=== PATIENT | female | born 1985 | race Caucasian/White ===

== ENCOUNTER 2018-09-05 13:38 | Emergency (ER) | payer MEDICAID ==
--- NOTE | 2018-09-05 14:34 | ED PDOC ---
HPI: General Adult Time Seen by Provider: 09/05/18 14:32 Chief Complaint (Nursing): Dizziness/Lightheaded Chief Complaint (Provider): neck pain/swelling History Per: Patient (33 y/o female here with ongoing swelling by right lateral neck x 3 weeks. Notes chills. Seen by urgent care and advised f/u with pmd. Has appt 09/13 but noted worsening swelling and new lymph nodes by neck.) Past Medical History Reviewed: Historical Data, Nursing Documentation, Vital Signs Vital Signs: Last Vital Signs Temp 98.3 F 09/05/18 14:01 Pulse 81 09/05/18 14:01 Resp 16 09/05/18 14:01 BP 151/82 H 09/05/18 14:01 Pulse Ox 100 09/05/18 14:01 - Family History Family History: States: Unknown Family Hx - Home Medications Home Medications: Ambulatory Orders Medication Instructions Recorded Ciprofloxacin HCl [Cipro] 500 mg PO BID #10 tab 03/24/15 Ibuprofen 600 mg PO Q6H PRN #15 tab 03/24/15 Multivitamin [Merle-Plus G] 1 cap PO DAILY 03/24/15 Amoxicillin/Clavulanate [Augmentin 1 tab PO BID #20 tab 09/05/18 875 MG-125 MG] Ibuprofen [Motrin] 600 mg PO Q8 PRN #21 tab 09/05/18 - Allergies Allergies/Adverse Reactions: Allergies Allergy/AdvReac Type Severity Reaction Status Date / Time No Known Allergies Allergy Verified 09/05/18 14:00 Review of Systems ROS Statement: Except As Marked, All Systems Reviewed And Found Negative Physical Exam - Reviewed Nursing Documentation Reviewed: Yes Vital Signs Reviewed: Yes - Physical Exam Appears: Positive for: Well, Non-toxic, No Acute Distress Head Exam: Positive for: ATRAUMATIC, NORMAL INSPECTION, NORMOCEPHALIC Skin: Positive for: Normal Color, Warm, DRY Eye Exam: Positive for: EOMI, Normal appearance, PERRL ENT: Positive for: Normal ENT Inspection Neck: Positive for: Normal, Painless ROM Cardiovascular/Chest: Positive for: Regular Rate, Rhythm Respiratory: Positive for: CNT, Normal Breath Sounds Gastrointestinal/Abdominal: Positive for: Normal Exam, Soft Back: Positive for: Normal Inspection Extremity: Positive for: Normal ROM Neurologic/Psych: Positive for: Alert, Oriented - Laboratory Results Result Diagrams: 09/05/18 15:00 09/05/18 15:00 - ECG O2 Sat by Pulse Oximetry: 100 Medical Decision Making Medical Decision Makin:31 CXR FINDINGS: LUNGS: No active pulmonary disease. PLEURA: No significant pleural effusion identified. No pneumothorax apparent. CARDIOVASCULAR: No aortic atherosclerotic calcification present. Normal cardiac size. No pulmonary vascular congestion. OSSEOUS STRUCTURES: No significant abnormalities. VISUALIZED UPPER ABDOMEN: Normal. OTHER FINDINGS: None. IMPRESSION: No evidence of new infiltrate or consolidation in the lungs. 17:[address] FINDINGS: NASOPHARYNX: Unremarkable. SUPRAHYOID NECK: Unremarkable oropharynx, oral cavity, parapharyngeal space and retropharyngeal space. INFRAHYOID NECK: Unremarkable larynx, hypopharynx, and supraglottic space. Vocal cords intact. MASS: None. GLANDS: There is enhancing lesion noted at the inferior aspect of the right parotid gland measures 1.2 centimeter in the transverse diameter and 1.4 centimeter in the longitudinal diameter. Findings may represent enlarged lymph node versus parotid tumor. The left parotid gland and the submandibular salivary glands are grossly unremarkable. Normal size thyroid gland, without nodule. LYMPH NODES: There are 2 adjacent right submental and level 2 enlarged lymph nodes noted the largest lymph node measures 2.1 centimeter in the transverse diameter. There is a slightly prominent also right level 2 lymph nodes measures 1.2 centimeter. CERVICAL SPINE: No fracture or focal lesion. VASCULAR STRUCTURES: Unremarkable. OTHER FINDINGS: Almost complete opacification of the right maxillary sinus and jogc-da-lruyhfcq left maxillary sinus mucosal thickening. IMPRESSION: 1.2 x 1.4 centimeter enhancing lesion at the inferior aspect of the right parotid gland may represent enlarged lymph node versus parotid tumor. Two adjacent [id number]-[id number] enlarged lymph nodes in the right submental and upper neck region. Adjacent mildly enlarged level 2 lymph node also noted. The differential consideration includes reactive lymphadenopathy from recent infection or inflammatory process versus neoplasm. Mucosal thickening and almost complete opacification of the right maxillary sinus and [id number] mucosal thickening of the left maxillary sinus noted. Disposition - Clinical Impression Clinical Impression: Sinusitis, Lymphadenopathy, Parotid swelling - Patient ED Disposition Is Patient to be Admitted: No - Disposition Referrals: Maykel Lynn MD [Staff Provider] - Disposition: Routine/Home Disposition Time: 18:49 Condition: FAIR Prescriptions: Amoxicillin/Clavulanate [Augmentin 875 MG-125 MG] 1 tab PO BID #20 tab Ibuprofen [Motrin] 600 mg PO Q8 PRN #21 tab PRN Reason: Pain, Moderate (4-7) Instructions: Sinusitis, Adult (DC) Forms: [facility] ED School/Work Excuse
[2018-09-05 15:13] LABS: BASO # 0.1 K/uL (0.0-0.2); BASO % 0.9 % (0.0-2.0); EOS # 0.2 K/uL (0.0-0.7); EOS % 2.3 % (0.0-4.0); HEMOGLOBIN 13.2 g/dL (12.0-16.0); LYMPH # 2.2 K/uL (1.0-4.3); LYMPH % 30.2 % (20.0-40.0); MEAN CELL VOLUME 84.8 fl (81.0-99.0); MEAN PLATELET VOLUME 8.4 fl (7.2-11.7); MONO # 0.6 K/uL (0.0-0.8); MONO % 8.6 % (0.0-10.0); NEUT # 4.1 K/uL (1.8-7.0); NRBC % 0.1 % (0.0-0.0); RBC 4.7 Mil/uL (3.80-5.20); RED CELL DISTRIBUTION WIDTH 14.3 % (11.5-14.5); WHITE BLOOD COUNT 7.1 K/uL (4.8-10.8)
[2018-09-05 15:24] LABS: ALB/GLOB RATIO 1.2 (1.0-2.1); ALBUMIN 4.1 g/dL (3.5-5.0); ALT/SGPT 31 U/L (9-52); AST/SGOT 25 U/L (14-36); BLOOD UREA NITROGEN 14 mg/dl (7-17); CALCIUM 9.3 mg/dL (8.4-10.2); GFR NON-AFRICAN AMERICAN > 60
[2018-09-05] MEDS ORDERED: Iohexol 300 100 ML IJ ONE (16:08)
[2018-09-05] MEDS ORDERED: Sodium Chloride 0.9% 50 ML IV ONE (16:09)
--- NOTE | 2018-09-05 16:35 | RAD ---
Date of service: 09/05/2018 HISTORY: routine COMPARISON: Comparison is made with 06/11/2014 TECHNIQUE: Chest PA and lateral FINDINGS: LUNGS: No active pulmonary disease. PLEURA: No significant pleural effusion identified. No pneumothorax apparent. CARDIOVASCULAR: No aortic atherosclerotic calcification present. Normal cardiac size. No pulmonary vascular congestion. OSSEOUS STRUCTURES: No significant abnormalities. VISUALIZED UPPER ABDOMEN: Normal. OTHER FINDINGS: None. IMPRESSION: No evidence of new infiltrate or consolidation in the lungs.
--- NOTE | 2018-09-05 17:28 | CT ---
Date of service: 09/05/2018 PROCEDURE: CT NECK WITH CONTRAST HISTORY: swelling right cervical neck COMPARISON: None available. TECHNIQUE: CT of the neck with intravenous contrast. Coronal and sagittal reformats generated. Intravenous contrast dose: 80 cc of Omnipaque 300 intravenously Radiation dose: Total exam DLP = 296.76 mGy-cm. This CT exam was performed using one or more of the following dose reduction techniques: Automated exposure control, adjustment of the mA and/or kV according to patient size, and/or use of iterative reconstruction technique. FINDINGS: NASOPHARYNX: Unremarkable. SUPRAHYOID NECK: Unremarkable oropharynx, oral cavity, parapharyngeal space and retropharyngeal space. INFRAHYOID NECK: Unremarkable larynx, hypopharynx, and supraglottic space. Vocal cords intact. MASS: None. GLANDS: There is enhancing lesion noted at the inferior aspect of the right parotid gland measures 1.2 centimeter in the transverse diameter and 1.4 centimeter in the longitudinal diameter. Findings may represent enlarged lymph node versus parotid tumor. The left parotid gland and the submandibular salivary glands are grossly unremarkable. Normal size thyroid gland, without nodule. LYMPH NODES: There are 2 adjacent right submental and level 2 enlarged lymph nodes noted the largest lymph node measures 2.1 centimeter in the transverse diameter. There is a slightly prominent also right level 2 lymph nodes measures 1.2 centimeter. CERVICAL SPINE: No fracture or focal lesion. VASCULAR STRUCTURES: Unremarkable. OTHER FINDINGS: Almost complete opacification of the right maxillary sinus and rlno-fk-cyisnfjs left maxillary sinus mucosal thickening. IMPRESSION: 1.2 x 1.4 centimeter enhancing lesion at the inferior aspect of the right parotid gland may represent enlarged lymph node versus parotid tumor. Two adjacent tuifbg-ba-[id number] enlarged lymph nodes in the right submental and upper neck region. Adjacent mildly enlarged level 2 lymph node also noted. The differential consideration includes reactive lymphadenopathy from recent infection or inflammatory process versus neoplasm. Mucosal thickening and almost complete opacification of the right maxillary sinus and [id number]-vz-[id number] mucosal thickening of the left maxillary sinus noted.
[2018-09-05] MEDS ORDERED: Dexamethasone 10 MG in Dextrose 5% In Water 50 ML IV STA (18:48)
[2018-09-05 19:21] VITALS: BP 120/77; PULSE 83; RESP 20; TEMP 98.4; O2SAT 97
== END 2018-09-05 19:21 | disposition home or self-care (01) ==
LOC: H.ER 13:38
DX: J32.9 Chronic sinusitis, unspecified (principal); R59.9 Enlarged lymph nodes, unspecified; K11.8 Other diseases of salivary glands
CPT/HCPCS: 70491; 71046; 80053; 81025; 85025; 86308; 87070; 87430; 96374; 99284; J1100; Q9967